=== PATIENT | female | born 1940 | race Caucasian/White ===

== ENCOUNTER → 2016-09-10 | Outpatient (CLI) | payer OTHER, BC | LOC: CIMAGING 10:10 | DX: Z12.31 Encounter for screening mammogram for malignant neoplasm of breast (principal); Z80.3 Family history of malignant neoplasm of breast | CPT/HCPCS: G0202 ==

== ENCOUNTER → 2016-11-27 | Outpatient (CLI) | payer OTHER, BC ==
[~2016-11-27] MED LIST: IOPAMIDOL (ISOVUE-300) 100 ML BTL ONE
== END ==
LOC: CIMAGING 10:01
PROVIDERS: ATTEND Internal Medicine
DX: R59.1 Generalized enlarged lymph nodes (principal); D73.9 Disease of spleen, unspecified
CPT/HCPCS: 71260; 74177; Q9967

== ENCOUNTER → 2017-05-09 | Outpatient (CLI) | payer OTHER, BC | LOC: FIMAGING 10:44 | PROVIDERS: ATTEND Orthopaedic Surgery | DX: M17.11 Unilateral primary osteoarthritis, right knee (principal); M16.11 Unilateral primary osteoarthritis, right hip ==

== ENCOUNTER → 2017-06-04 | Outpatient (CLI) | payer OTHER, BC | LOC: CIMAGING 08:12 | PROVIDERS: ATTEND Internal Medicine Cardiovascular Disease | DX: N28.1 Cyst of kidney, acquired (principal); I10 Essential (primary) hypertension | CPT/HCPCS: 76770-PO ==

== ENCOUNTER → 2017-08-29 | Outpatient (CLI) | payer OTHER, BC | LOC: BHFA 15:30 | PROVIDERS: ATTEND Internal Medicine Cardiovascular Disease | DX: I10 Essential (primary) hypertension (principal); I99.8 Other disorder of circulatory system ==

== ENCOUNTER → 2017-09-16 | Outpatient (CLI) | payer OTHER, BC | LOC: CIMAGING 09:56 | PROVIDERS: ATTEND Internal Medicine | DX: Z12.31 Encounter for screening mammogram for malignant neoplasm of breast (principal); Z80.3 Family history of malignant neoplasm of breast ==

== ENCOUNTER → 2018-03-19 | Outpatient (CLI) | payer OTHER, BC | LOC: BHLMT 14:30 | PROVIDERS: ATTEND Internal Medicine Cardiovascular Disease | DX: Z01.810 Encounter for preprocedural cardiovascular examination (principal); E78.2 Mixed hyperlipidemia; E66.9 Obesity, unspecified; G47.33 Obstructive sleep apnea (adult) (pediatric); I10 Essential (primary) hypertension; I34.0 Nonrheumatic mitral (valve) insufficiency | CPT/HCPCS: 93005-PO ==

== ENCOUNTER → 2018-03-25 | Outpatient (CLI) | payer OTHER, BC | LOC: FIMAGING 11:24 → EDSTATUS 11:30 | PROVIDERS: ATTEND Orthopaedic Surgery | DX: Z01.818 Encounter for other preprocedural examination (principal); M17.11 Unilateral primary osteoarthritis, right knee; M25.461 Effusion, right knee ==

== ENCOUNTER → 2018-03-31 | Outpatient (CLI) | payer OTHER, BC | LOC: BHLMT 13:00 | PROVIDERS: ATTEND Internal Medicine Cardiovascular Disease | DX: Z01.810 Encounter for preprocedural cardiovascular examination (principal) | CPT/HCPCS: 78452; 93017; A9500; J2785 ==

== ENCOUNTER → 2018-05-28 | Outpatient (CLI) | payer OTHER, BC | LOC: BHLMT 08:45 | PROVIDERS: ATTEND Nurse Practitioner Family | DX: Z01.810 Encounter for preprocedural cardiovascular examination (principal); E66.9 Obesity, unspecified; G47.33 Obstructive sleep apnea (adult) (pediatric); I10 Essential (primary) hypertension | CPT/HCPCS: 93005-PO ==

== ENCOUNTER 2018-07-08 13:08 | Inpatient (IN) | payer OTHER, BC ==
[~2018-07-08 13:08] MED LIST changes: -IOPAMIDOL (ISOVUE-300) 100 ML BTL ONE; +VANCOMYCIN 1 GM VIAL IV ONE
[2018-07-08] MEDS ORDERED: ceFAZolin 2 GM/DEXTROSE 100 ML IV ONE (13:18)
[2018-07-08] MEDS ORDERED: ROPIVACAINE 0.2% 80 MG, EPINEPHrine 0.2 MG, KETOROLAC TROMETHAMINE 30 MG in SYRINGE 0 ML IU ONE (13:18)
[2018-07-08] MEDS ORDERED: DEXAMETHASONE 4 MG/ML VIAL IVP ONE (13:18)
[2018-07-08] MEDS ORDERED: TRANEXAMIC ACID 3,000 MG in NS (SYRINGE) 50 ML IRR ONE (13:18)
[2018-07-08] MEDS ORDERED: FAMOTIDINE 20 MG TAB PO ONE (13:18)
[2018-07-08] MEDS ORDERED: ACETAMINOPHEN 325 MG TAB PO ONE (13:18)
[2018-07-08] MEDS ORDERED: MIDAZOLAM 2 MG/2 ML VIAL IVP ONE (13:27)
--- NOTE | 2018-07-08 13:31 | PDANEPAE ---
ANE Past Medical History - Cardiovascular History Hx Hypertension: Yes Hx Arrhythmias: Yes Hx Chest Pain: No Hx Coronary Artery / Peripheral Vascular Disease: No Hx CHF / Valvular Disease: Yes Hx Palpitations: Yes Cardiovascular History Comment: MITRAL VALVE PROLAPSE. HYPERTENSIVE CRISIS IF SHE DOESN'T TAKE HER BP MEDS ALSO HYPERTENSIVE WITH ANXIETY - Pulmonary History Hx COPD: No Hx Asthma/Reactive Airway Disease: Yes Hx Recent Upper Respiratory Infection: No Hx Oxygen in Use at Home: No Hx Sleep Apnea: Yes Pulmonary History Comment: ALLERGY INDUCED/SEASONAL ASTHMA. BRITTNEY POSITIVE - uses Cpap - Neurologic History Hx Cerebrovascular Accident: No Hx Seizures: No Hx Dementia: No Neurologic History Comment: Had a seizure/histamine reaction w/blood transfusion in 1971. States was due to a protion reaction and should always receive benadryl w/any blood products. - Endocrine History Hx Diabetes: Yes Endocrine History Comment: HYPOTHYROID - Renal History Hx Renal Disorders: Yes Renal History Comment: STRESS INCONT - Liver History Hx Hepatic Disorders: No - Neurological & Psychiatric Hx Hx Neurological and Psychiatric Disorders: Yes Neurological / Psychiatric History Comment: SLIGHT ANXIETY - Cancer History Hx Cancer: No - Congenital Disorder History Hx Congenital Disorders: No - GI History Hx Gastrointestinal Disorders: Yes Gastrointestinal History Comment: GERD - Other Health History Other Health History: DVT ILIAC ARTERY POST-HYSTERECTOMY R/T surgical positioning in 1971. permanent bridges, upper & lower. wears glasses for reading - Chronic Pain History Chronic Pain: No - Surgical History Prior Surgeries: L KAT. CATARACTS. AVIONICS REPAIR TECHNICIAN 1998. URETHERAL SLING 2009. RT ROTATOR CUFF REPAIR 2004. HYSTERECTOMY. RADHA. LAMINECTOMY L4-5. SEPTOPLASTY ANE Review of Systems Review of Systems: ANE Patient History - Allergies Allergies/Adverse Reactions: adhesive tape Allergy (Verified 07/03/18 14:58) skin peeling, burning codeine Allergy (Verified 07/03/18 14:58) Abdominal Cramping meperidine HCl [From Demerol] Allergy (Verified 07/03/18 14:58) Vomiting Sulfa (Sulfonamide Antibiotics) Allergy (Verified 07/03/18 14:58) Swelling neck, face, throat - Home Medications Home Medications: Multivitamins [Multivitamin (*)] 1 each PO DAILY 02/08/14 [Last Taken 11/18/15] guanFACINE HCL [Guanfacine HCl 1 MG (*)] 3 mg PO HS 02/08/14 [Last Taken ] Herbals/Supplements -Info Only 1 ea PO DAILY 07/01/14 [Last Taken 06/27/14] Aspirin [Aspirin 81mg (*)] 162 mg PO HS 08/30/15 [Last Taken 11/18/15] ALPRAZolam [Xanax 0.5 MG (*)] 0.5 mg PO DAILY PRN 11/19/15 [Last Taken 11/12/15] Levothyroxine [Synthroid 100 mcg (*)] 100 mcg PO DAILY06 11/19/15 [Last Taken ] Nebivolol HCl [Bystolic] 20 mg PO BID 11/19/15 [Last Taken 11/18/15] Ascorbic Acid [Vitamin C 500 mg (*)] 500 mg PO DAILY 03/02/18 [Last Taken Unknown] [place] Pool-3 Fatty Acids [Fish Oil 1000 mg (*)] 1,000 mg PO BID 03/02/18 [Last Taken Unknown] Pantoprazole Sodium [Protonix 40mg (*)] 40 mg PO DAILY 03/02/18 [Last Taken Unknown] Albuterol [Proventil Inhaler HFA (*)] 1 - 2 puffs IH Q4H PRN 07/03/18 [Last Taken Unknown] Azilsartan Med/Chlorthalidone [Edarbyclor 40-12.5 mg Tablet] 1 each PO DAILY 01/11 [Last Taken Unknown] Spironolactone [Aldactone 25 MG (*)] 25 mg PO DAILY 07/03/18 [Last Taken Unknown ] amLODIPine BESYLATE [Norvasc 2.5 mg (*)] 2.5 mg PO DAILY 07/03/18 [Last Taken Unknown] - Smoking Hx Smoking Status: Former smoker - Family Anes Hx Family Hx Anesthesia Complications: NONE
[2018-07-08] MEDS ORDERED: LR 1,000 ML IV ONE (13:33)
[2018-07-08] MEDS ORDERED: fentaNYL 100 MCG/2 ML INJ ONE (14:07)
[2018-07-08] MEDS ORDERED: PROPOFOL/EMULSION 500 MG/50 ML BOTTLE IV ONE (14:08)
[2018-07-08] MEDS ORDERED: VANCOMYCIN 1 GM VIAL ONE (14:45)
[2018-07-08] MEDS ORDERED: TEMAZEPAM 15 MG CAP PO PRN (15:15)
[2018-07-08] MEDS ORDERED: PROMETHAZINE HCL 25 MG/ML INJ IVP PRN ×2 (15:15→15:31)
[2018-07-08] MEDS ORDERED: ONDANSETRON DISINTEGRATING 4 MG TAB PO PRN (15:15)
[2018-07-08] MEDS ORDERED: DIPHENOXYLATE/ATROPINE LOMOTIL 1 TAB PO PRN (15:15)
[2018-07-08] MEDS ORDERED: MAGNESIUM HYDROXIDE 30 ML UDCUP PO PRN (15:15)
[2018-07-08] MEDS ORDERED: diphenhydrAMINE 25 MG CAP PO PRN (15:15)
[2018-07-08] MEDS ORDERED: CYCLOBENZAPRINE 10 MG TAB PO PRN (15:15)
[2018-07-08] MEDS ORDERED: BISACODYL 10 MG SUPP PR PRN (15:15)
[2018-07-08] MEDS ORDERED: POLYETHYLENE GLYCOL 3350 17 GM PKT PO PRN (15:15)
[2018-07-08] MEDS ORDERED: METOCLOPRAMIDE 10 MG/2 ML VIAL IVP PRN (15:15)
[2018-07-08] MEDS ORDERED: ONDANSETRON 4 MG/2 ML VIAL IVP PRN ×2 (15:15→15:31)
[2018-07-08] MEDS ORDERED: PROMETHAZINE HCL 25 MG SUPPR PR PRN (15:15)
[2018-07-08] MEDS ORDERED: LACTULOSE 20 GM/30 ML UDCUP PO PRN (15:15)
[2018-07-08] MEDS ORDERED: oxyCODONE IR 5 MG TAB PO PRN (15:15)
--- NOTE | 2018-07-08 15:15 | POSTOPPROG ---
Post Op Note Date of Operation: 07/08/18 Surgeon: Loretta Leonard Sales Merchandising Specialist: Fiorella Tuttle PA-C and Floresita Leonard PA-C Anesthesiologist: dr. Mukherjee Anesthesia: Spinal, Other (Specify) (adductor canal block) Pre-op Diagnosis: right knee OA Post-op Diagnosis: same Indication: right knee pain Procedure: R med PKA, robot assisted Findings: severe medial knee OA Inf/Abcess present in the surg proc area at time of surgery?: No EBL: 50-100
[2018-07-08] MEDS ORDERED: LR 1,000 ML IV SCH (15:30)
[2018-07-08] MEDS ORDERED: NALOXONE HCL 0.4 MG/ML INJ IVP PRN (15:31)
[2018-07-08] MEDS ORDERED: fentaNYL 100 MCG/2 ML INJ IVP PRN (15:31)
--- NOTE | 2018-07-08 15:32 | POSTANESTH ---
Post Anesthetic Evaluation Cardiovascular Status: Normal, Stable Respiratory Status: Normal, Stable Level of Consciousness/Mental Status: Can Participate in Eval, Mildly Sleepy, Arousable Pain Control: Adequate, Prn Tx Ordered Nausea/Vomiting Control: Adequate, Prn Tx Ordered Complications Possibly Related to Anesthesia: None Noted
[2018-07-08] MEDS: ACETAMINOPHEN 325 MG TAB PO SCH (17:14)
[2018-07-08] MEDS ORDERED: ALPRAZolam 0.5 MG TAB PO PRN (21:17)
[2018-07-08] MEDS ORDERED: ALBUTEROL 60 PUFFS/8 GM MDI IH PRN (21:30)
--- NOTE | 2018-07-08 21:42 | PDMN ---
Medical Necessity Medical necessity: [facility] Musculoskeletal Surgery or Procedure GR yo s/ p R knee resurfacing, per PA IP status for advanced age w/ close post op onitoring, hx of HTN, blood clots and BRITTNEY+ Per anesthesia Pt w/ hx mitral valve prolapse, asthma, hypothyroid.
[2018-07-08] MEDS: NEBIVOLOL HCL 5 MG TAB PO SCH (21:49)
[2018-07-08] MEDS: SENNOSIDES/DOCUSATE SODIUM TAB PO SCH (21:50)
[2018-07-08] MEDS: FAMOTIDINE 20 MG TAB PO SCH (21:50)
[2018-07-08] MEDS: ceFAZolin 2 GM/DEXTROSE 100 ML IV SCH (21:51)
[2018-07-09] MEDS: ACETAMINOPHEN 325 MG TAB PO SCH ×3 (00:40→12:12)
[2018-07-09] MEDS: ceFAZolin 2 GM/DEXTROSE 100 ML IV SCH (05:15)
[2018-07-09] MEDS ORDERED: LEVOTHYROXINE 88 MCG TAB PO SCH (06:00)
[2018-07-09] MEDS ORDERED: AZILSARTAN MED PO SCH (09:00)
[2018-07-09] MEDS ORDERED: SPIRONOLACTONE 25 MG TAB PO SCH (09:00)
[2018-07-09] MEDS ORDERED: CHLORTHALIDONE PO SCH (09:00)
[2018-07-09] MEDS ORDERED: RIVAROXABAN 10 MG TAB PO SCH (09:00)
[2018-07-09] MEDS: NEBIVOLOL HCL 5 MG TAB PO SCH (09:42)
[2018-07-09] MEDS: SENNOSIDES/DOCUSATE SODIUM TAB PO SCH (09:42)
[2018-07-09] MEDS: FAMOTIDINE 20 MG TAB PO SCH (09:42)
--- NOTE | 2018-07-09 10:25 | ASMTLACE ---
EDWIN Length of stay for Answers: 2 days current admission Acuity / Level of Answers: Yes Care: Did the patient have an inpatient admission? Comorbidities - select Answers: Congestive heart failure all that apply Diabetes (uncontrolled or controlled) Other Notes: HTN; Hypothyroid # of Emergency department Answers: 0 visits in the last 6 months Social determinants Answers: Mental health diagnosis (anxiety, depression, pers onality disorders, etc.) Score: 12 Date Signed: 07/09/2018 10:25 AM Electronically Signed By:Ava Hawkins
[2018-07-09 11:31] VITALS: BP 153/68
--- NOTE | 2018-07-09 13:09 | SOAPPROG ---
SOAP Progress Note Assessment/Plan: Assessment: Patient is doing well POD 1 s/p R med PKA Pain management: pain is well controlled on oral pain meds. VTE ppx: recommend resuming xarelto, cont BENNIE and SCDs Anemia: level is expected initially postop. Asymptomatic. Continue to monitor D/c planning: Patient has done better than anticipated and would like to be discharged to home today. Patient must be released from PT before discharge to home. Plan: 07/09/18 13:08 Subjective: patient is doing well today, denies SOB, chest pain and n/V Objective: Vital Signs Temp Pulse Resp BP Pulse Ox 36.8 C 54 L 16 153/68 H 96 07/09/18 11:31 07/09/18 11:31 07/09/18 11:31 07/09/18 11:31 07/09/18 11:31 Laboratory Results 07/09/18 04:57 07/09/18 04:57 07/08/18 07/09/18 07/10/18 05:59 05:59 05:59 Intake Total 1945 Output Total 505 Balance 1440 RLE: incision dressing is clean and dry, NVI, +pf/df ICD10 Worksheet Patient Problems: Problems Problem Status Onset Primary localized osteoarthritis of right knee Acute Acute left-sided thoracic back pain Acute Bradycardia Acute Bronchitis, acute Acute Chest pressure Acute Hypertension Acute Hypoxemia Acute Primary osteoarthritis of left hip Acute Urinary tract infection Acute
--- NOTE | 2018-07-09 13:26 | GOP ---
[f rep st] OPERATIVE REPORT DATE OF OPERATION: 07/08/2018 SURGEON: Mariel Leonard MD DIET TECH: CATALINA Gaona. ANESTHESIA: Spinal. PREOPERATIVE DIAGNOSIS: Right knee osteoarthritis. POSTOPERATIVE DIAGNOSIS: Right knee osteoarthritis. PROCEDURE PERFORMED: Right medial compartment partial replacement with computer navigation, robotic assist, JOANNE uni-knee. FINDINGS: ESTIMATED BLOOD LOSS: 30 mL. INDICATIONS: This is a female with progressive pain of the right knee unresponsive to conservative care. Risks and benefits of surgical intervention were explained in detail. DESCRIPTION OF PROCEDURE: The patient was brought to the operating room and placed on the table in supine position. Spinal anesthesia was induced without difficulty. A pneumatic tourniquet was applied about the right proximal thigh and the leg was prepped and draped in sterile fashion. Attention was turned first to the distal aspect of the right femur. At 3 cm proximal to the lateral rise of the femur, 2 percutaneous half pins were placed for fixation of the femoral array. In a similar fashion, 2 pins were placed anterolateral on the tibia for fixation of the tibial array. External land marking and registration of the hip center was performed without difficulty. After exsanguination by elevation, the tourniquet was inflated to 250 mmHg. Incision was made from the tibial tuberosity to the superior pole of the patella. Dissection was carried out through the subcutaneous tissue to the deep fascia using Bovie electrocautery for hemostasis. Medial parapatellar arthrotomy was carried out to the superior pole of the patella. The medial collateral ligament was elevated and the infrapatellar fat pad was resected. Internal femoral and tibial registration was carried out without difficulty and the femoral and tibial checkpoints were placed and verified for accuracy. Attention was turned to the femur. The foot print for the size 3 femoral component was cut with the 6 mm bur using the [employer] robotic system and verified for accuracy against the CT based plan. The hole was cut for the femoral post. In a similar fashion, the 6 mm bur was used to cut the foot print for the size 3 tibial component using the [employer] system and verified for accuracy against the CT based plan. Attention was turned to the posterior aspect of the knee and remnants of the medial meniscus were excised. The posterior capsule was injected with ropivacaine, epinephrine and Toradol. Trial reduction was carried out and there was excellent range of motion, alignment and stability using the size 3 femoral component and the size 3 tibial component. All trials were then removed. The joint was thoroughly irrigated and carefully dried. One package of cement and 1 gram of vancomycin were mixed in the vacuum mixer and placed on the fixation surfaces of all components. The components were implanted and all excess cement was thoroughly removed. Implant placement was verified against the CT view plan and found to be excellent. The tourniquet was deflated and all bleeders were coagulated. The wound was thoroughly irrigated and closed using interrupted sutures of 2-0 Vicryl for the joint capsule. The subcu was closed with 3-0 Vicryl and the skin with 4-0 Monocryl. Dermabond and Steri-Strips were applied, followed by a compressive dressing. The patient was then moved from the operating room to the recovery room in good condition, having tolerated the procedure well. CASE CLASSIFICATION: Clean. /[id number]/MODL MTDD
--- NOTE | 2018-07-09 17:43 | GDS ---
[f rep st] DISCHARGE SUMMARY SUPERVISING PHYSICIAN: Dr. Gato Leonard. ADMISSION DIAGNOSIS: Osteoarthritis of right medial knee. DISCHARGE DIAGNOSIS: Osteoarthritis of right medial knee. PROCEDURE: Right partial knee arthroplasty, medial, robot-assist. VTE PROPHYLAXIS: Resume Xarelto on day after surgery. BRIEF DESCRIPTION OF HOSPITAL STAY: Patient was admitted for an elective joint arthroplasty. The pa tient tolerated the procedure well and has passed physical therapy. The patient was given appropriat e antibiotic prophylaxis and venous thromboembolism prophylaxis. The patient's pain was well control led on oral pain medication, patient was holding down food, and had urinated. Decision was made to d ischarge the patient. The patient was given post-operative prescriptions pre-operatively. PLAN: Follow up with Dr. Leonard's office on July 30 at 1:15 p.m. /[id number]/MODL
[2018-07-09] MEDS ORDERED: OXYBUTYNIN CHLORIDE TP SCH (21:00)
[2018-07-09] MEDS ORDERED: GUANFACINE HCL 3 MG PO SCH (21:00)
== END 2018-07-09 13:25 | disposition home or self-care (01) | DRG 470 ==
LOC: F3N 13:08
PROVIDERS: ADMIT Orthopaedic Surgery; ATTEND Orthopaedic Surgery
DX: M17.11 Unilateral primary osteoarthritis, right knee (principal); I10 Essential (primary) hypertension; G47.33 Obstructive sleep apnea (adult) (pediatric); J45.998 Other asthma; E03.9 Hypothyroidism, unspecified; N39.3 Stress incontinence (female) (male); K21.9 Gastro-esophageal reflux disease without esophagitis; Z96.642 Presence of left artificial hip joint
CPT/HCPCS: 97161-GP; C1713; J0171; J0690; J1100; J1885; J2250; J2704; J2795; J3010; J3370

== ENCOUNTER → 2018-08-17 | Outpatient (CLI) | payer OTHER, BC | LOC: FIMAGING 12:51 → EDSTATUS 12:52 | PROVIDERS: ATTEND Physician Assistant | DX: R22.41 Localized swelling, mass and lump, right lower limb (principal) ==

== ENCOUNTER → 2018-09-24 | Outpatient (CLI) | payer OTHER, BC | LOC: CIMAGING 09:12 | PROVIDERS: ATTEND Internal Medicine | DX: Z12.31 Encounter for screening mammogram for malignant neoplasm of breast (principal); Z80.3 Family history of malignant neoplasm of breast ==